=== PATIENT | male | born 1990 | race Caucasian/White ===

== ENCOUNTER 2025-01-23 14:00 | Outpatient (CLI) | payer OTHER, SELFPAY | END 2025-01-23 14:01 | disposition home or self-care (01) | PROVIDERS: PCP Family Medicine; Visit Provider Family Medicine | DX: K21.9 Gastro-esophageal reflux disease without esophagitis (principal) | CPT/HCPCS: 80053; 80061; 85025 ==

== ENCOUNTER 2025-04-13 07:50 | Outpatient (CLI) | payer OTHER, SELFPAY ==
--- NOTE | 2025-04-13 09:22 | P.ANES_ITS ---
Anesthesia Charges Start Date/Time Anesthesia Start Date: 04/13/25 Anesthesia Start Time: 09:00 Stop Date/Time Anesthesia Stop Date: 04/13/25 Anesthesia Stop Time: 09:19 Coding CPT Codes CPT Codes: ANES UPR GI NDSC PX NOS - 88523 ([id number]) P3 - PATIENT W/SEVERE SYS DISEASE, QK - CRITICAL CARE EDUCATOR 2-4 CNCRNT ANES PROC, QX - CLOTH FOLDER MACHINE SVC W/ MD MED DIRECTION
--- NOTE | 2025-04-13 09:22 | W.ANESCHARGE ---
Anesthesia Charges Start Date/Time Anesthesia Start Date: 04/13/25 Anesthesia Start Time: 09:00 Stop Date/Time Anesthesia Stop Date: 04/13/25 Anesthesia Stop Time: 09:19 Coding CPT Codes CPT Codes: ANES UPR GI NDSC PX NOS - [id number] ([id number]) P3 - PATIENT W/SEVERE SYS DISEASE, QK - CURLING MACHINE OPERATOR 2-4 CNCRNT ANES PROC, QX - PAROLE DIRECTOR SVC W/ MD MED DIRECTION
--- NOTE | 2025-04-13 09:35 | P.ANES_ITS ---
Anesthesia Charges Start Date/Time Anesthesia Start Date: 04/13/25 Anesthesia Start Time: 09:00 Stop Date/Time Anesthesia Stop Date: 04/13/25 Anesthesia Stop Time: 09:19 Coding CPT Codes CPT Codes: ANES UPR GI NDSC PX NOS - [id number] ([id number]) QK - GRADE AND CENTER MARKER 2-4 CNCRNT ANES PROC, QX - SENIOR MARKETING MANAGER SVC W/ MD MED DIRECTION, P3 - PATIENT W/SEVERE SYS DISEASE
--- NOTE | 2025-04-13 09:35 | W.ANESCHARGE ---
Anesthesia Charges Start Date/Time Anesthesia Start Date: 04/13/25 Anesthesia Start Time: 09:00 Stop Date/Time Anesthesia Stop Date: 04/13/25 Anesthesia Stop Time: 09:19 Coding CPT Codes CPT Codes: ANES UPR GI NDSC PX NOS - [id number] ([id number]) QK - RN TELEPHONIC 2-4 CNCRNT ANES PROC, QX - SUPERVISOR BILLPOSTING SVC W/ MD MED DIRECTION, P3 - PATIENT W/SEVERE SYS DISEASE
== END 2025-04-13 07:51 | disposition home or self-care (01) ==
LOC: OP CLINIC 07:50
PROVIDERS: PCP Family Medicine; Visit Provider Surgery
DX: K21.9 Gastro-esophageal reflux disease without esophagitis (principal); K22.89 Other specified disease of esophagus
CPT/HCPCS: 00731; 43239; J2704; J3490